=== PATIENT | female | born 1960 | race Hispanic/Latino ===

== ENCOUNTER 2017-04-18 16:48 | Emergency (ER) | payer SELFPAY ==
[2017-04-18] MEDS ORDERED: Benzonatate 100 MG CAP ONE (17:14)
--- NOTE | 2017-04-18 18:43 | RAD ---
TWO VIEWS CHEST 04/18/17 HISTORY: Cough. PA and lateral views of the chest is obtained. The lungs are well aerated. No evidence of active int rathoracic disease seen. No evidence of effusions, pneumonia or pneumothorax seen. IMPRESSION: Normal two views chest. POS: [facility]
== END 2017-04-18 18:34 | disposition home or self-care (01) ==
LOC: NAV ERS 16:48
DX: J06.9 Acute upper respiratory infection, unspecified (principal); E78.5 Hyperlipidemia, unspecified; M81.0 Age-related osteoporosis without current pathological fracture; Z79.899 Other long term (current) drug therapy
CPT/HCPCS: 71020; 93005; 94640; J7620

== ENCOUNTER 2017-07-31 18:06 | Emergency (ER) | payer SELFPAY ==
[~2017-07-31 18:06] MED LIST: Iopamidol 370 76% 100 ML VIAL ONE
[2017-07-31] MEDS ORDERED: Morphine Sulfate 2 MG/ML SYRINGE ONE (18:59)
[2017-07-31 19:06] LABS: #Basophils 0.2 thou/uL (0.0-0.2); #Eosinphils 0.8 thou/uL (0.0-0.7); #Lymphocytes 2.5 thou/uL (1.20-3.40); #Monocytes 0.8 thou/uL (0.11-0.59); #Neutrophils 6.4 thou/uL (1.40-6.50); %Basophils 1.8 % (0.0-1.0); %Eosinophils 7.2 % (0.0-10.0); %Lymphocytes 23.7 % (21.0-51.0); %Monocytes 7.5 % (0.0-10.0); %Neutrophils 59.9 % (42.0-75.0); Hemoglobin 14.3 g/dL (12.0-16.0); Mean Corpuscular HGB CONC 32.3 g/dL (32.0-36.0); Mean Corpuscular Hemoglobin 29.4 pg (27.0-31.0); Mean Platelet Volume 7.9 fL (7.4-10.4); Platelet Count 272 thou/uL (130-400); RBC Distribution Width 11.8 % (11.5-14.5); Red Blood Cell (RBC) Count 4.86 mill/uL (4.20-5.40); White Blood Cell (WBC) Count 10.7 thou/uL (4.8-10.8)
[2017-07-31] MEDS ORDERED: Ketorolac Tromethamine 30 MG/ML VIAL ONE (19:11)
[2017-07-31 19:12] LABS: INR-International Normal Ratio 0.9; PTT 26.4 SEC (22.9-36.1); Prothrombin Time 12.2 SEC (12.0-14.7)
[2017-07-31 19:21] LABS: ALT (SGPT) 40 U/L (8-55); AST (SGOT) 19 U/L (5-34); Albumin 4.3 g/dL (3.5-5.0); Alkaline Phosphatase 87 U/L (40-150); Anion Gap 16 mmol/L (10-20); BUN (Urea Nitrogen) 18 mg/dL (9.8-20.1); Bilirubin, Total 0.4 mg/dL (0.2-1.2); Calc. Creatinine Clearance 0 mL/min (70-130); Calcium 9.4 mg/dL (7.8-10.44); Carbon Dioxide 22 mmol/L (22-29); Chloride 106 mmol/L (98-107); Estimated GFR-MDRD 68; Glucose 115 mg/dL (70-105); Potassium 3.7 mmol/L (3.5-5.1); Protein, Total 7.3 g/dL (6.0-8.3); Sodium 140 mmol/L (136-145)
[2017-07-31] MEDS ORDERED: Ondansetron HCl/PF 4 MG/2 ML Vial ONE (19:45)
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
== END 2017-07-31 20:15 | disposition home or self-care (01) ==
LOC: NAV ERS 18:06
DX: S16.1XXA Strain of muscle, fascia and tendon at neck level, initial encounter (principal); K76.0 Fatty (change of) liver, not elsewhere classified; M81.0 Age-related osteoporosis without current pathological fracture; E78.5 Hyperlipidemia, unspecified; Z79.899 Other long term (current) drug therapy; V43.52XA Car driver injured in collision with other type car in traffic accident, initial encounter
CPT/HCPCS: 71260; 72125; 80053; 85025; 85610; 85730; 96361; 96374; 96375; J1885; J2270; J2405

== ENCOUNTER 2018-12-10 18:56 | Emergency (ER) | payer SELFPAY ==
[2018-12-10] MEDS ORDERED: Ondansetron ODT 4 MG TAB ONE (19:45)
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
[2018-12-10] MEDS ORDERED: Cyclobenzaprine 10 MG TAB ONE (20:43)
== END 2018-12-10 20:50 | disposition home or self-care (01) ==
LOC: NAV ERS 18:56
DX: R51 Headache (principal); M54.2 Cervicalgia; M54.6 Pain in thoracic spine; K21.9 Gastro-esophageal reflux disease without esophagitis; E78.5 Hyperlipidemia, unspecified; M81.0 Age-related osteoporosis without current pathological fracture; F17.210 Nicotine dependence, cigarettes, uncomplicated; Z79.899 Other long term (current) drug therapy; V43.52XA Car driver injured in collision with other type car in traffic accident, initial encounter
CPT/HCPCS: 70450; 72072; 72125; Q0162

== ENCOUNTER 2020-12-21 15:18 | Emergency (ER) | payer SELFPAY ==
[2020-12-22 21:42] LABS: SARS-CoV-2 PCR by NAA DETECTED (NotDetected)
== END 2020-12-21 15:56 | disposition home or self-care (01) ==
LOC: NAV ERS 15:18
DX: U07.1 COVID-19 (principal); J06.9 Acute upper respiratory infection, unspecified; E11.9 Type 2 diabetes mellitus without complications; K21.9 Gastro-esophageal reflux disease without esophagitis; E78.5 Hyperlipidemia, unspecified; E78.00 Pure hypercholesterolemia, unspecified; F17.210 Nicotine dependence, cigarettes, uncomplicated; Z79.899 Other long term (current) drug therapy
CPT/HCPCS: 87635; 99283; U0003; U0005

== ENCOUNTER 2022-04-02 16:35 | Emergency (ER) | payer SELFPAY ==
[2022-04-02 17:22] LABS: Clarity Cloudy (Clear); Leukocyte Moderate (Negative); Specific Gravity, Urine 1.025 (1.005-1.030); pH, Urine 5.5 (5.0-9.0)
[2022-04-02 17:23] LABS: Bilirubin Negative (Negative); Blood, Urine Large (Negative); Glucose, Urine (Dipstick) Negative (Negative); Ketone, Urine 15 mg/dL (Negative); Nitrite Positive (Negative); Protein, Urine (Dipstick) 100 mg/dL (Neg-Trace)
[2022-04-02 17:27] LABS: Bacteria/HPF 3+ HPF (None Seen); RBC/HPF Greater than 50 HPF (0-3); Renal Epithelial 0-3 HPF (None Seen); WBC/HPF 21-50 HPF (0-3)
[2022-04-02] MEDS ORDERED: Sodium Chloride 0.9% 1,000 ML ONE (17:27)
[2022-04-02] MEDS ORDERED: Ketorolac Tromethamine 30 MG/ML VIAL ONE (17:27)
[2022-04-02 17:35] LABS: #Basophils 0.2 thou/uL (0.0-0.2); #Eosinphils 1.4 thou/uL (0.0-0.7); #Lymphocytes 2.1 thou/uL (1.20-3.40); #Neutrophils 10.9 thou/uL (1.40-6.50); %Basophils 1.3 % (0.0-1.0); %Eosinophils 8.6 % (0.0-10.0); %Lymphocytes 13.5 % (21.0-51.0); %Monocytes 6.7 % (0.0-10.0); Hemoglobin 13.7 g/dL (12.0-16.0); Mean Corpuscular HGB CONC 30.7 g/dL (32.0-36.0); Mean Corpuscular Hemoglobin 30.1 pg (27.0-31.0); Mean Corpuscular Volume 97.8 fL (78.0-98.0); Mean Platelet Volume 10.4 fL (7.4-10.4); Platelet Count 256 thou/uL (130-400); RBC Distribution Width 12.1 % (11.5-14.5); Red Blood Cell (RBC) Count 4.56 mill/uL (4.20-5.40); White Blood Cell (WBC) Count 15.6 thou/uL (4.8-10.8)
[2022-04-02 18:22] LABS: ALT (SGPT) 13 U/L (8-55); AST (SGOT) 10 U/L (5-34); Alkaline Phosphatase 67 U/L (40-110); Anion Gap 15 mmol/L (10-20); BUN (Urea Nitrogen) 19 mg/dL (9.8-20.1); Bilirubin, Total 0.6 mg/dL (0.2-1.2); Calc. Creatinine Clearance 0 mL/min (70-130); Carbon Dioxide 21 mmol/L (23-31); Chloride 109 mmol/L (98-107); Globulin 2.3 g/dL (2.4-3.5); Glucose 99 mg/dL (80-115); Lipase 67 U/L (8-78); Potassium 3.8 mmol/L (3.5-5.1); Protein, Total 6.3 g/dL (5.8-8.1); Sodium 141 mmol/L (136-145)
[2022-04-02] MEDS ORDERED: cefTRIAXone\\ROCEPHIN 2 GM VIAL ONE (19:48)
[2022-04-02] MEDS ORDERED: Sodium Chloride 0.9% 100 ML ONE (19:48)
== END 2022-04-02 20:42 | disposition home or self-care (01) ==
LOC: NAV ERS 16:35
DX: N39.0 Urinary tract infection, site not specified (principal); D72.829 Elevated white blood cell count, unspecified; R93.5 Abnormal findings on diagnostic imaging of other abdominal regions, including retroperitoneum; R91.1 Solitary pulmonary nodule; E11.9 Type 2 diabetes mellitus without complications; K21.9 Gastro-esophageal reflux disease without esophagitis; E78.5 Hyperlipidemia, unspecified; E78.00 Pure hypercholesterolemia, unspecified; F17.210 Nicotine dependence, cigarettes, uncomplicated; Z79.899 Other long term (current) drug therapy
CPT/HCPCS: 74176; 80053; 81003; 81015; 83690; 85025; 87077; 87086; 87186; 96365; 96367; J0696; J1885; J3490; J7050